=== PATIENT | male | born 1965 | race Caucasian/White ===

== ENCOUNTER 2020-09-05 23:37 | Emergency (ER) | payer MEDICARE, MEDICAID ==
[~2020-09-05] VITALS: Ht 177.8 cm; Wt 98.0 kg
[2020-09-06] MEDS ORDERED: HYDROCODON-ACE1 EAC8 PO (01:43)
[2020-09-06] MEDS ORDERED: KEFLEX250 MG PO (01:43)
[2020-09-06] MEDS ORDERED: BACTRIM DS TAB1 EACH PO (01:43)
[2020-09-06 01:58] VITALS: BP 118/78
== END 2020-09-06 01:58 | disposition home or self-care (01) ==
LOC: M.ERS 23:37
DX: L03.012 Cellulitis of left finger (principal); L03.113 Cellulitis of right upper limb

== ENCOUNTER → 2020-09-24 | Outpatient (CLI) | payer MEDICARE, MEDICAID ==
[~2020-09-24] MED LIST: BACTRIM DS TAB1 EACH PO; HYDROCODON-ACE1 EAC8 PO; KEFLEX250 MG PO
[2020-09-24 11:55] LABS: HEMATOCRIT 41.2 % (42.0-52.0); HEMOGLOBIN 13.9 gm/dL (14.0-18.0); MCHC 33.7 g/dL (28.0-37.0); MCV 94.9 fL (80.0-100.0); RBC 4.34 mil/uL (4.50-6.00); RDW-CV 14.8 % (10.5-14.5); WBC 6.2 thou/uL (4.0-11.0)
[2020-09-24 12:03] LABS: CREATININE 0.8 mg/dL (0.6-1.3); POTASSIUM 4.6 mmol/L (3.5-5.1)
== END ==
LOC: M.LAB 11:37
PROVIDERS: ATTEND Podiatrist
DX: Z01.818 Encounter for other preprocedural examination (principal); Z01.812 Encounter for preprocedural laboratory examination; M25.775 Osteophyte, left foot; Z20.822 Contact with and (suspected) exposure to COVID-19

== ENCOUNTER 2021-01-15 21:27 | Emergency (ER) | payer MEDICARE, OTHER, MEDICAID ==
[~2021-01-15] VITALS: Ht 177.8 cm; Wt 90.7 kg
[2021-01-15] MEDS ORDERED: WELLBUTRIN 75 M75 M1 PO (21:40)
[2021-01-15] MEDS ORDERED: FLEXERIL PO (21:41)
[2021-01-15] MEDS ORDERED: TRAMADOL 50 MG50 MG PO (21:41)
[2021-01-15 22:37] LABS: ABSOLUTE BASOPHILS 0.1 thou/uL (0.0-0.2); ABSOLUTE EOSINOPHILS 0.3 thou/uL (0.0-0.7); ABSOLUTE LYMPHOCYTES 1.9 thou/uL (0.8-5.3); ABSOLUTE MONOCYTES 0.6 thou/uL (0.0-1.2); ABSOLUTE NEUTROPHILS 4.4 thou/uL (1.6-8.1); BASOPHILS 1.1 %; EOSINOPHILS 4.5 %; HEMATOCRIT 39.9 % (42.0-52.0); HEMOGLOBIN 13.6 gm/dL (14.0-18.0); LYMPHOCYTES 26.2 %; MCH 31.8 pg (26.0-34.0); MCHC 34.1 g/dL (28.0-37.0); MCV 93.3 fL (80.0-100.0); MONOCYTES 7.9 %; MPV 7.4 fl. (7.2-11.1); NUCLEATED RBCS 0 /100WBC; PLATELET COUNT* 246 thou/uL (150-400); POLYS 60.3 %; RBC 4.28 mil/uL (4.50-6.00); RDW-CV 13.9 % (10.5-14.5); WBC 7.4 thou/uL (4.0-11.0)
[2021-01-15 22:45] LABS: POTASSIUM 4.3 mmol/L (3.5-5.1)
[2021-01-15 22:49] LABS: AMP/METHAMP POSITIVE (Negative); BARBITURATES Negative (Negative); BENZODIAZEPINES Negative (Negative); COCAINE Negative (Negative); METHADONE Negative (Negative); OPIATES Negative (Negative); PCP Negative (Negative); THC POSITIVE (Negative)
[2021-01-15 22:49] LABS: ALBUMIN 3.6 g/dL (3.4-5.0); MAGNESIUM 2.1 mg/dL (1.8-2.4); TOTAL BILIRUBIN 0.1 mg/dL (<0.1-1.0); TOTAL PROTEIN 6.7 g/dL (6.4-8.2)
[2021-01-15 22:56] LABS: URINE BILIRUBIN NEGATIVE (Negative); URINE BLOOD NEGATIVE (Negative); URINE CLARITY CLEAR; URINE COLOR YELLOW; URINE GLUCOSE-RANDOM NEGATIVE (Negative); URINE KETONES NEGATIVE (Negative); URINE LEUKOCYTES-REFLEX NEGATIVE (Negative); URINE NITRITE-REFLEX NEGATIVE (Negative); URINE PROTEIN NEGATIVE (Negative); URINE SPECIFIC GRAVITY 1.015 (1.005-1.030); URINE UROBILINOGEN 0.2 E.U./dl (0.2-1.0)
[2021-01-15 23:49] VITALS: BP 134/86
== END 2021-01-15 23:51 | disposition left against medical advice (07) ==
LOC: M.ERS 21:27
PROVIDERS: Emergency Medicine
DX: G62.9 Polyneuropathy, unspecified (principal); Z88.5 Allergy status to narcotic agent